=== PATIENT | male | born 1970 | race Caucasian/White ===

== ENCOUNTER 2019-11-07 01:42 | Outpatient (CLI) | payer MEDICAID, SELFPAY ==
[2019-11-07 16:21] LABS: ALT 33 U/L (16-63); AST 22 U/L (15-37); Albumin 4.1 g/dL (3.4-5.0); Alkaline Phosphatase 83 U/L (46-116); Anion Gap 10.1 mmol/L (3-11); BUN 13 mg/dL (7-18); Bilirubin, Total 0.4 mg/dL (0.2-1.0); CO2 25.9 mmol/L (21.0-32.0); CREATININE 0.96 mg/dL (0.70-1.30); Calcium 8.7 mg/dL (8.5-10.1); Calculated LDL 85 mg/dL (<100); Chloride 106 mmol/L (98-107); Cholesterol 168 mg/dL (<200); Glucose 96 mg/dL (74-106); HDL Cholesterol 61 mg/dL (40-60); Potassium 4.1 mmol/L (3.5-5.1); Sodium 142 mmol/L (136-145); Total Protein 6.7 g/dL (6.4-8.2); Triglyceride 110 mg/dL (<150)
[2019-11-08 09:13] LABS: HIV-1/2 Ag & Ab Screen Negative (Negative)
== END 2019-11-07 02:02 ==
PROVIDERS: PCP Nurse Practitioner Family; Visit Provider Nurse Practitioner Family
DX: Z13.220 Encounter for screening for lipoid disorders (principal); Z11.4 Encounter for screening for human immunodeficiency virus [HIV]; Z13.1 Encounter for screening for diabetes mellitus
CPT/HCPCS: 36415; 80053; 80061; 87389

== ENCOUNTER 2020-12-24 03:13 | Outpatient (CLI) | payer MEDICAID, SELFPAY ==
[2020-12-24 16:06] LABS: Anion Gap 9.2 mmol/L (3-11); BUN 11 mg/dL (7-18); CO2 26.8 mmol/L (21.0-32.0); Calcium 8.8 mg/dL (8.5-10.1); Chloride 106 mmol/L (98-107); Glucose 113 mg/dL (74-106); Potassium 4.4 mmol/L (3.5-5.1); Sodium 142 mmol/L (136-145)
== END 2020-12-24 03:14 | disposition home or self-care (01) ==
LOC: LBO 03:13
PROVIDERS: PCP Nurse Practitioner Family; Visit Provider Nurse Practitioner Family
DX: Z13.1 Encounter for screening for diabetes mellitus (principal)
CPT/HCPCS: 36415; 80048

== ENCOUNTER 2021-07-07 01:37 | Outpatient (CLI) | payer MEDICAID, SELFPAY ==
[2021-07-07 11:44] LABS: Source Nasal/Nares
[2021-07-07 14:25] LABS: COVID-19 PCR Negative (Negative)
== END 2021-07-07 01:38 | disposition home or self-care (01) ==
LOC: LBO 01:37
PROVIDERS: PCP Nurse Practitioner Family; Visit Provider Surgery
DX: Z20.822 Contact with and (suspected) exposure to COVID-19 (principal)
CPT/HCPCS: 87635

== ENCOUNTER 2021-07-09 09:06 | Day surgery (SDC) | payer MEDICAID, SELFPAY ==
--- NOTE | 2021-07-08 19:43 | W.PM.DSUDISC ---
Discharge Plan Disposition Patient Disposition: HOME Condition: Good Discharge Details Reason For Visit: colon scope Attending Provider: Apple Yeager Primary Care Provider: Vaishnavi Hylton Home Meds and New Rx's Prescriptions: Continued diphenhydramine HCl [Benadryl] 25 mg capsule 25 mg PO QHS PRN0RF omeprazole 40 mg capsule,delayed release(DR/EC) 40 mg PO DAILY Qty: 90 3RF Rx Instructions: Take 40 mg once daily at least 30 minutes before first meal Excedrin Migraine 1 EACH tablet 1 ea PO PRN 0RF acetaminophen [Tylenol] 325 MG tablet 325 mg PO DIRECTED 0RF Discontinued polyethylene glycol 3350 17 gram/dose powder 238 g PO ONCE Qty: 238 0RF Label Comments: pt reports he managed to get 3/4 of prep in. Rx Instructions: take per colonoscopy instructions bisacodyl [Dulcolax (bisacodyl)] 5 mg tablet,delayed release (DR/EC) 5 mg PO ONCE Qty: 4 0RF Rx Instructions: take per colonoscopy instructions Discharge Instructions Additional Instructions: [facility] Colonoscopy Post-Op Instructions Instructions for Everyone who is given Anesthesia: For your safety, please do the following for the next twenty-four (24) hours: *Do Not operate a motor vehicle (car, truck, motorcycle, etc.) *Do Not drink alcoholic beverages or use any recreational drugs for the first 24 hours or while taking pain medications. The medications in your body may have a reaction that can be dangerous. *Do Not make any important decisions or sign any important papers. Findings: normal Follow up: repeat in 10 yrs time. If you note any pain or difficulty moving your bowels/unexplained weight loss or persistent rectal bleeding, see your PCP, as these are indications that might warrant a colonoscopy sooner. 1. No lifting over 20 pounds or strenuous activity for the first 24 hours after your procedure. After 24 hours there are no restrictions on your activity but you may feel fatigued for a few days. 2. After you arrive home you may have a light meal and return to your normal diet as you can tolerate it without feeling sick to your stomach. 3. You may have a bloated, gaseous feeling in your belly (abdomen) after a colonoscopy. Passing gas and belching will help. Walking or lying down on your left side with your knees flexed may relieve the discomfort. Call the office at [phone] (Office) or [phone] (Hospital) right away if you notice any of the following: a.Vomiting of blood or ?coffee ground stools?. b.Rectal bleeding 1Tbsp, blood clots or continuous bleeding. c.Severe belly (abdominal) pain. d.A hard distended belly (abdomen) and an inability to pass gas. 4. Please don?t expect to have a normal BM (bowel movement) for 2-3 days after your procedure. 5. If there are questions regarding the findings of your procedure, please contact your doctor 6. If you are unable to contact your doctor with a problem, contact the hospital at [phone]. 7. Continue all your regular medications unless directed otherwise. I understand the above instructions and have no questions. Signature of Patient or Adult Escort Name of Responsible Adult Escort Signature of Nurse Date/Time Activity:: see above Diet:: see above Discharge Orders Discharge Orders: Discharge Order (Routine); Ordered 07/08/21 Ordered By: Apple Yeager
--- NOTE | 2021-07-08 19:45 | W.COLOREPORT ---
Colonoscopy Report Date of procedure: 07/09/21 Pre-op diagnosis general: CRC screen Post-op diagnosis procedure note: same Surgeon: Apple Yeager Anesthesia Type: General:No Airway Estimated blood loss (mL): 0 Pathology: none sent Complications: None Disposition: same day Prep: Miralax/Dulcolax Retraction Time: 8 Procedure Description: After informed consent was obtained the patient was taken to the procedure room and placed in a left decubitous position. Monitors were applied and a time out was done. The patients name, date of , procedure, allergies to medications and metal in their body was reviewed. The patient was then sedated. Once sedated and comfortable a rectal exam was done. External exam was normal. Internal exam revealed a normal sphincter tone and no palpable masses. The prostate nl The scope was then introduced and retrofelexed. Nointernal hemorrhoids were identified. The scope was then advanced to the cecum withoutdifficulty. The TI and appendiceal orifice were identified. The prep was BBPS in all segments except the right colon which was a 2, for a total of 8. The scope was then slowly retracted over 8 minutes back into the rectum. There are no polyps, AVMs, or diverticula visualized today. The mucosa is pink and healthy, with a normal vasculature pattern. This is essentially a normal exam. The scope was removed and the patient was woken up and taken back to Same day surgery in stable condition. The patient tolerated the procedure well and there were no immediate complications. Follow up: The patient should follow up in 10 years unless they develop changes in bowel habits or other new gastrointestinal complaints.
[2021-07-09 09:27] VITALS: BP 111/74; PULSE 92; RESP 16; TEMP 36.7; O2SAT 97
--- NOTE | 2021-07-09 09:43 | W.ANESPRE ---
General Info Date of Service Date Performed: 07/09/21 Height: 5 ft 11 in Weight: 82.5 kg Body Mass Index (BMI): 25.3 Surgical Procedure: Operation Date: 07/09/21 09:50 Proposed Procedure Side Surgeon julio cesar Yeager, DO Meds Allergies and Home Medications Allergies Allergy/AdvReac Type Severity Reaction Status Date / Time No Known Allergies Allergy Unverified 07/09/21 09:33 Home Medication Medication Instructions Recorded aaqcewd-gnpcbahvzbhht-xrcztcgz 250 1 ea PO PRN 06/08/15 mg-250 mg-65 mg tablet (Excedrin Migraine) acetaminophen 325 mg tablet 325 mg PO DIRECTED 06/23/15 (Tylenol) omeprazole 40 mg capsule,delayed 40 mg PO DAILY #90 tab-cap 11/20/20 release bisacodyl 5 mg tablet,delayed 5 mg PO ONCE #4 tab 06/25/21 release (Dulcolax (bisacodyl)) diphenhydramine HCl 25 mg capsule 25 mg PO QHS PRN 06/25/21 (Benadryl) polyethylene glycol 3350 17 238 g PO ONCE #238 g 06/25/21 gram/dose oral powder Current Visit Medications: Current Medications Generic Name Dose Route Start Last Admin Trade Name Freq PRN Reason Stop Dose Admin Hyoscyamine Sulfate 0.125 mg 07/08/21 10:19 Hyoscyamine 0.125 Mg Sl/Oral/Chew SL DIRECTED PRN Ringer's Solution 1,000 mls @ 80 mls/hr 07/09/21 06:00 IV 08/07/21 23:59 INFUSION [facility] IV Miscellaneous Supplies 1 each 07/09/21 06:00 Iv Access IV 08/07/21 23:59 DIRECTED [facility] Ondansetron HCl 4 mg 07/08/21 10:19 Ondansetron 4 Mg/2 Ml Vial IVP Q4H PRN PRN Nausea / Vomiting Sodium Chloride 0 ml 07/09/21 06:00 Normal Saline Flush 10 Ml Syr IV 08/07/21 23:59 PRN PRN Sodium Chloride 0 ml 07/09/21 06:00 Normal Saline 10 Ml Vial IJ 08/07/21 23:59 DIRECTED PRN Sterile Water 0 ml 07/09/21 06:00 Water,Injection,Sterile 10 Ml Vial IJ 08/07/21 23:59 DIRECTED PRN PFSH Active Problems Active Problems: Problem Status Onset Code IFG (impaired fasting glucose) R73.01 Gastroesophageal reflux disease K21.9 Hiatal hernia K44.9 Encounter for screening for lipid disorder Z13.220 Post-void dribbling 06/23/15 N39.43 Plantar fasciitis, bilateral M72.2 Retention cyst of nasal sinus 07/06/15 J34.1 Headache 06/08/15 R51 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 Allergic rhinitis, unspecified 06/08/15 J30.9 Medical History Medical History Tobacco use disorder (05/19/14) Surgical History Surgical History Status post hernia repair During childhood Tobacco Smoking/Tobacco Use Status: Former Tobacco Use Smokeless tobacco user: snuff Alcohol Alcohol Intake: never Substance Use Substance use: Never Substance use type: does not use Vital Signs and Lab Results Vital Signs Most Recent Vital Signs in EMR: Most Recent Vital Signs Temp Pulse Resp BP Pulse Ox 36.7 C 92 H 16 111/74 97 07/09/21 09:27 07/09/21 09:27 07/09/21 09:27 07/09/21 09:27 07/09/21 09:27 Lab Results Blood Type / Crossmatch: No Data to Display Complete Blood Count: No Data to Display Complete Metabolic Panel: No Data to Display Liver Function Panel: No Data to Display Coagulation Panel: No Data to Display Cardiac Panel: No Data to Display Arterial Blood Gas: No Data to Display Venous Blood Gas: No Data to Display Pancreas Panel: No Data to Display Thyroid Panel: No Data to Display Infectious Disease: Coronavirus (COVID-19)(PCR) Negative (Negative) 07/07/21 08:33 07/07/21 Coronavirus 2019 Source Nasal/Nares 07/07/21 08:33 07/07/21 Blood Cultures: No Data to Display Toxicology Panel: No Data to Display Anesthesia Assessment and Plan Anesthesia History Personal History: No History of Anesthesia Complications Family History: No Family History of Anesthesia Complications Exercise Tolerance Exercise Tolerance: Metabolic Equivalents>4 Pertinent Negatives Pertinent Negatives: No Symptoms of GERD, No Major Cardiovascular Symptoms or Complaints and No Major Pulmonary Symptoms or Complaints Cardiac & Pulmonary Exam Cardiac Exam: Normal S1/S2 Heart Sounds Pulmonary Exam: Clear Bilateral Breath Sounds Implantable Cardiac Device Does patient have a Pacemaker or an ICD?: No Airway Exam Known Difficult Airway: No Mallampati Class: 1 Mouth Opening: Normal (> 3cm) Thyromental Distance: Greater than 3 cm Neck Range of Motion: Full ROM Neck Circumference: Normal Teeth Condition: Normal Dentition ASA Classification ASA Score: ASA 2 Emergency Case?: No NPO Status NPO Status: NPO Clears >2 hours, Solids >8 hours Anesthesia Plan Resuscitation Status: Full Code Anesthesia Technique: General Anesthesia Airway Planned: Natural Airway Monitors Used: Standard Monitors
[2021-07-09 09:45] VITALS: BMI 25.3
[2021-07-09] MEDS: Lactated Ringers 1,000 ML 80 ML IV (09:53)
[2021-07-09 10:36] VITALS: BP 111/69; PULSE 77; RESP 16; TEMP 36.1; O2SAT 97
--- NOTE | 2021-07-09 10:49 | W.ANESPOSTOP ---
Postoperative Evaluation Date, Time and Location Date Performed: 07/09/21 Time Performed: 10:49 Patient Location: Day Surgery Unit Vital Signs Most Recent Imported Vital Signs: Most Recent Vital Signs Temp Pulse Resp BP Pulse Ox 36.7 C 92 H 16 111/74 97 07/09/21 09:27 07/09/21 09:27 07/09/21 09:27 07/09/21 09:27 07/09/21 09:27 Most Recent Manually Entered Vital Signs: Adult Blood Pressure: 111/69 Heart Rate: 77 Respirations: 16 Oxygen Saturation (%): 97 Temperature (C): 36.1 C Pain Score (0-10 Scale): 0 Pain Score Most Recent Pain Score: Most Recent Pain Score Pain Level 0 07/09/21 09:27 Assessment Mental Status: Awake (Alert & Oriented to Patient Baseline) Airway and Respiratory Function: Patent airway with normal (patient baseline) respiratory exam Cardiovascular Function: Hemodynamically Stable Hydration Status: Adequately Hydrated Nausea & Vomiting: No Nausea or Vomiting Pain: Pt. Denies Any Pain Peripheral Nerve Block: Patient did not receive a nerve block
[2021-07-09 11:02] VITALS: BP 111/69; PULSE 77; RESP 16; TEMPC 36.1; O2SAT 97
[2021-07-09 11:08] VITALS: BP 116/79; PULSE 68; RESP 16; TEMP 36.1; O2SAT 98
== END 2021-07-09 11:30 | disposition home or self-care (01) ==
LOC: SUR 09:06
PROVIDERS: PCP Nurse Practitioner Family; Visit Provider Surgery
PROC: 0DJD8ZZ Inspection of Lower Intestinal Tract, Via Natural or Artificial Opening Endoscopic (ICD-10-PCS; CPT 45378; principal; 2021-07-09 09:45)
DX: Z12.11 Encounter for screening for malignant neoplasm of colon (principal); R73.01 Impaired fasting glucose; K21.9 Gastro-esophageal reflux disease without esophagitis; K90.0 Celiac disease
CPT/HCPCS: 45378